=== PATIENT | male | born 1975 | race African-American/Black ===

== ENCOUNTER → 2016-08-05 | Outpatient (CLI) | payer OTHER ==
--- NOTE | ~2016-08-05 | S ---
[facility] [place] [address] SURGICAL PATH RPT PROCEDURE Name: IRMA CHUN Room #: REG [facility].#: [id number] Admission: 08/05/16 Date of : 77 Discharge: Report #: [id number] Path Case #: [id number] PATHOLOGY REPORT COLLECTION DATE: 08/05/2016 RECEIVED DATE: 08/06/2016 SUBMITTING PHYS: Dr. Thong Varela OTHER PHYS: Dr. Mindy Jasso SPECIMEN(S) RECEIVED: A.Duodenum B.Gastric * * * * * * * * * * * * FINAL DIAGNOSIS: A. Duodenum, endoscopic biopsy: - Mild active peptic duodenitis with fibrosis within the lamina propria. - Negative for significant villous blunting or increase in intraepithelial lymphocytosis (celiac sprue). - Negative for dysplasia or malignancy. B. Gastric mucosa, gastric, endoscopic biopsy: - Mild reactive gastropathy with congested lamina propria vessels. - Negative for intestinal metaplasia or atrophy. - Negative for Helicobacter pylori. COMMENT: Helicobacter pylori immunohistochemical stain performed on block B1 negative. (IUV:csd; d/t: 08/09/2016) PATHOLOGIST: Janelle Henley M.D. REPORT ELECTRONICALLY SIGNED BY: Janelle Henley M.D. DATE/TIME: 08/09/2016 16:09 * * * * * * * * * * * * GROSS PATHOLOGY: A. Received in formalin labeled "Irma Chun and duodenum," are 7 segments of matias soft tissue measuring 2.2 x 0.3 x 0.2 cm in aggregate dimensions and ranging from 0.3 to 0.5 cm in maximum dimension. The specimen is submitted entirely in cassette A1. B. Received in formalin labeled "Irma Chun and gastric," are 5 segments of matias soft tissue measuring 1.6 x 0.3 x 0.2 cm in aggregate dimensions and ranging from 0.3 to 0.4 cm in maximum dimension. The specimen is submitted entirely in cassette B1. (TTL; 08/06/2016) [address] [address] SURGICAL PATH RPT PROCEDURE Name: IRMA CHUN R Room #: REG [facility].#: [id number] Admission: 08/05/16 Date of : 77 Discharge: Report #: [id number] Path Case #: [id number] CLINICAL HISTORY: Epi pain, abdominal pain INITIAL CPT CODE(S): A; 28009 B; 07289, 44903 Professional services performed by [facility] [address], [place] [address] Technical services performed by [facility] at [address] [place] [address], [facility] [address] [address]. [facility] [address] [place] [id number] PHONE: [phone] DIRECTOR: Ari Farrra M.D. * * * END OF REPORT * * *
--- NOTE | ~2016-08-05 | P ---
[facility] [place] [address] PROCEDURE REPORT Name: IRMA CHUN Room #: REG [facility]#: [id number] Admission: 08/05/16 Attend Phys: Thong Varela MD Discharge: Date of : 77 Report #: [id number] THIS REPORT FOR: //name// CC: Thong Jasso MD OUTPATIENT UPPER ENDOSCOPY REPORT BRIEF HISTORY: The patient is a 49-year-old male with prior history of ulcer disease and he has had persistent upper abdominal pain and periumbilical pain for at least a year. Pain does improve somewhat with use of PPI therapy, but does not completely resolve. He denies use of nonsteroidals on a regular basis. PREOPERATIVE DIAGNOSIS: Upper abdominal pain and periumbilical pain, persistent. POSTOPERATIVE DIAGNOSES: 1. Moderate bulbar duodenitis. 2. Moderate antral gastritis. MEDICATIONS: Deep sedation with propofol per anesthesia. SPECIMEN: 1. Biopsies of duodenal bulb, rule out duodenitis. 2. Biopsies of gastritis. ESTIMATED BLOOD LOSS: 3 mL. PROCEDURE: EGD with biopsy. FINDINGS: Prior to propofol sedation, procedure of upper endoscopy discussed with the patient as well as potential risks and its complications. He indicates he understands and desires to proceed. DESCRIPTION OF PROCEDURE: With the patient in left lateral decubitus position, the [employer] video endoscope was inserted in the cervical esophagus under direct vision without difficulty. Examination of this organ through its entire length revealed normal esophageal mucosa down the squamocolumnar junction. Squamocolumnar junction was inspected. It is noted to be normal. The Z-line was normal. A hiatus hernia was not seen. No strictures or masses were seen. There is no evidence of Carter's esophagus. Scope was advanced in the stomach, was examined on end view as well as retroflexed views. There was moderate antral erythema; however, no ulcers or erosions were seen. Biopsies were obtained for further evaluation. Upon retroflexion, the proximal stomach was normal. No masses or lesions were seen in the cardia. A hiatus hernia was not seen. The pylorus was normal. Examination of duodenal bulb revealed moderate [facility] [address] [place] [address] PROCEDURE REPORT Name: IRMA CHUN Room #: REG [facility].#: [id number] Admission: 08/05/16 Attend Phys: Thong Varela MD Discharge: Date of : 77 Report #: [id number] duodenitis. However, no ulcers or erosions were seen, biopsies were obtained. The duodenal sweep was inspected and noted to be within normal limits. At that point, the scope was slowly withdrawn and careful circumferential views confirmed the above findings. The patient tolerated the procedure well. CONDITION OF THE PATIENT UPON DISCHARGE: Following procedure, the patient drowsy, aroused, conversant and will be discharged home when fully ambulatory. INSTRUCTIONS TO THE PATIENT AND FAMILY AT THE TIME OF DISCHARGE: The patient with complaints of epigastric and periumbilical pain. Inflammatory changes as noted above. However, he has not had resolution of symptoms with PPI therapy. We will follow up on biopsies. We will also obtain an ultrasound with Doppler study of the abdomen for further evaluation. He has had some relief with PPI therapy, may continue to use as once he obtains benefit. We will add sucralfate as well. If he does not have resolution of symptoms, he is to return to see me in followup in the office. By: [id number] Thong Varela MD /nt
== END ==
LOC: GI 08:26
DX: K29.80 Duodenitis without bleeding (principal); K29.70 Gastritis, unspecified, without bleeding; K31.9 Disease of stomach and duodenum, unspecified
CPT/HCPCS: 62110